=== PATIENT | male | born 1955 | race African-American/Black ===

== ENCOUNTER 2016-12-22 09:39 | Emergency (ER) | payer MEDICARE, MEDICAID ==
[~2016-12-22] VITALS: Ht 175.3 cm; Wt 80.0 kg
[~2016-12-22 09:39] MED LIST: APRAZOLAM; CLOZ100T2; DEPAKOTE; DESYREL; LUTUDA; MULTIVIT; [UNRECOGNIZED DRUG - OTHER]
[2016-12-22 09:45] VITALS: BP 106/90
[2016-12-22] MEDS ORDERED: SODIUM CHLORIDE 0.9% 1,000 ML IV ONE (10:45)
[2016-12-22] MEDS ORDERED: ACETAMINOPHEN 325MG TABLET PO ONE (10:45)
== END 2016-12-22 12:10 | disposition left against medical advice (07) ==
LOC: ER 09:45
DX: M79.672 Pain in left foot (principal); R60.0 Localized edema; F17.200 Nicotine dependence, unspecified, uncomplicated
CPT/HCPCS: 71010; 99283; J7030